=== PATIENT | female | born 1940 | race Caucasian/White ===

== ENCOUNTER 2023-01-23 06:09 | Day surgery (SDC) | payer MEDICARE, OTHER ==
[2023-01-22 11:27] LABS: BASOPHILS % (AUTO) 0.7 % (0-1); EOSINOPHILS # (AUTO) 0.1 X10'3 (0-0.9); EOSINOPHILS % (AUTO) 2.5 % (0-6); HEMATOCRIT 41.5 % (35.0-45.0); HEMOGLOBIN 13.9 g/dl (12.0-16.0); LYMPHOCYTES # (AUTO) 1.6 X10'3 (1.1-4.8); LYMPHOCYTES % (AUTO) 29.6 % (21-51); MEAN CORPUSCULAR HEMOGLOBIN 29.3 PG (27.0-31.0); MEAN CORPUSCULAR HGB CONC 33.4 g/dL (33.0-36.5); MEAN CORPUSCULAR VOLUME 87.9 FL (78-98); MONOCYTES # (AUTO) 0.6 X10'3 (0-0.9); MONOCYTES % (AUTO) 11.7 % (2-12); NEUTROPHILS % (AUTO) 55.5 % (42-75); PLATELET COUNT 260 X10'3 (140-440); RED BLOOD COUNT 4.73 X10'6 (4.20-5.60); WHITE BLOOD COUNT 5.5 X10'3 (4.5-11.0)
[2023-01-22 11:35] LABS: APTT 26 SECONDS (22-32); INR 0.9 INR; PROTHROMBIN TIME 10.1 SECONDS (9.0-12.0)
[2023-01-22 11:40] LABS: ALBUMIN 4.2 G/DL (3.4-5.0); ANION GAP 9 (8-16); BLOOD UREA NITROGEN 17 MG/DL (7-18); BUN/CREATININE RATIO 17.9 (10.0-20.0); CHLORIDE 100 MMOL/L (99-107); CREATININE 0.95 MG/DL (0.40-0.90); GLUCOSE 94 MG/DL (70-104); POTASSIUM 3.8 MMOL/L (3.5-5.1); SODIUM 138 MMOL/L (135-145); TOTAL CARBON DIOXIDE 29.5 MMOL/L (24-32); eGFR 56 ML/MIN
[2023-01-23] VITALS (11 sets, daily range): BP systolic 99–135; BP diastolic 52–64; PULSE 64–74; RESP 12–17; TEMP 97.9; O2SAT 94–98
[~2023-01-23] VITALS: Ht 167.6 cm; Wt 76.2 kg
[2023-01-23] MEDS ORDERED: LORazepam 0.5 MG tablet PO PRN (06:25)
[2023-01-23] MEDS ORDERED: diphenhydrAMINE 25mg capsule PO PRN (06:25)
[2023-01-23] MEDS ORDERED: normal saline 1,000 ML IV SCH (06:25)
[2023-01-23] MEDS ORDERED: midazolam 1 mg/ML 2ml injection ONE (06:57)
[2023-01-23] MEDS ORDERED: nitroGLYCERIN-Tridil 50MG/D5W 250 ML IV ONE (06:57)
[2023-01-23] MEDS ORDERED: fentaNYL/PF 50MCG/1 ML 2ML syringe ONE (06:57)
[2023-01-23] MEDS ORDERED: iohexol 350 MG/ML 50ML vial IV ONE ×2 (06:57→08:36)
[2023-01-23] MEDS ORDERED: verapamil 2.5 mg/ml inj IV ONE (06:57)
[2023-01-23] MEDS ORDERED: LIDOcaine 1% (10mg/ml) 2ml vial ONE (06:57)
[2023-01-23] MEDS ORDERED: heparin 1,000unit/ml 10ml vial 10 ML ONE (06:57)
[2023-01-23] MEDS ORDERED: iohexol 350MG/ML 100ml bottle IV ONE ×2 (06:58→08:35)
[2023-01-23] MEDS ORDERED: SPIR25TA5 PO (07:04)
[2023-01-23] MEDS ORDERED: ATOR10TA70 PO (07:04)
[2023-01-23] MEDS ORDERED: VITA1TAB20 PO (07:04)
[2023-01-23] MEDS ORDERED: CALC-336 PO (07:04)
[2023-01-23] MEDS ORDERED: POTA-206 PO (07:04)
[2023-01-23] MEDS ORDERED: CHOL100034 PO (07:04)
[2023-01-23] MEDS ORDERED: FURO-150 PO (07:04)
[2023-01-23] MEDS ORDERED: CLOP75TA33 PO (07:04)
[2023-01-23] MEDS ORDERED: MAGN400C PO (07:04)
[2023-01-23] MEDS ORDERED: METO-539 PO (07:04)
[2023-01-23] MEDS ORDERED: ASCO100T12 PO (07:04)
[2023-01-23] MEDS ORDERED: CHOL20004 PO (07:04)
[2023-01-23] MEDS ORDERED: LOSA50TA64 PO (07:04)
[2023-01-23] MEDS ORDERED: Prevagen PO (07:04)
[2023-01-23] MEDS ORDERED: ISOS60TA71 PO (07:04)
[2023-01-23] MEDS ORDERED: CYAN100T9 PO (07:04)
[2023-01-23] MEDS ORDERED: ACET-1025 PO (07:04)
[2023-01-23] MEDS ORDERED: Zinc PO (07:04)
[2023-01-23] MEDS ORDERED: MULT-1085 PO (07:04)
[2023-01-23] MEDS ORDERED: OMEP20CA16 PO (07:04)
[2023-01-23] MEDS ORDERED: NEURIVA PO (07:04)
[2023-01-23] MEDS ORDERED: LORazepam 0.5 MG tablet PO ONE (07:20)
[2023-01-23] MEDS ORDERED: normal saline 1000ml 1,000 ML IV SCH (09:45)
== END 2023-01-23 14:00 | disposition home or self-care (01) ==
LOC: SSTAY O 06:09
PROVIDERS: ATTEND Internal Medicine Cardiovascular Disease
DX: I25.119 Atherosclerotic heart disease of native coronary artery with unspecified angina pectoris (principal); I11.0 Hypertensive heart disease with heart failure; I50.22 Chronic systolic (congestive) heart failure; I42.0 Dilated cardiomyopathy; G43.909 Migraine, unspecified, not intractable, without status migrainosus; K21.9 Gastro-esophageal reflux disease without esophagitis; E78.5 Hyperlipidemia, unspecified; Z79.899 Other long term (current) drug therapy; Z88.2 Allergy status to sulfonamides; Z96.652 Presence of left artificial knee joint; Z98.890 Other specified postprocedural states; Z79.01 Long term (current) use of anticoagulants
CPT/HCPCS: 36415; 76937; 80048; 85025; 85610; 85730; 93005; 93458; 99152; 99153; J1644; J2250; J3010; J3490; J7030; Q0163; Q9967; A6258; A6402; C1725; C1894

== ENCOUNTER 2024-11-25 09:08 | Day surgery (SDC) | payer MEDICARE, OTHER ==
[2024-11-24 11:34] LABS: BASOPHILS % (AUTO) 0.6 % (0-1); EOSINOPHILS # (AUTO) 0.2 X10'3 (0-0.9); EOSINOPHILS % (AUTO) 2.5 % (0-6); HEMATOCRIT 39.9 % (35.0-45.0); HEMOGLOBIN 13.2 g/dl (12.0-16.0); LYMPHOCYTES # (AUTO) 2.5 X10'3 (1.1-4.8); LYMPHOCYTES % (AUTO) 35.2 % (21-51); MEAN CORPUSCULAR HEMOGLOBIN 30.1 PG (27.0-31.0); MEAN CORPUSCULAR HGB CONC 33.1 g/dL (33.0-36.5); MEAN CORPUSCULAR VOLUME 90.8 FL (78-98); MEAN PLATELET VOLUME 7.5 FL (7.4-10.4); MONOCYTES # (AUTO) 0.8 X10'3 (0-0.9); MONOCYTES % (AUTO) 11.1 % (2-12); NEUTROPHILS # (AUTO) 3.5 X10'3 (1.8-7.7); NEUTROPHILS % (AUTO) 50.6 % (42-75); PLATELET COUNT 253 X10'3 (140-440); RED BLOOD COUNT 4.39 X10'6 (4.20-5.60); RED CELL DISTRIBUTION WIDTH 14.1 % (11.5-14.5)
[2024-11-24 11:47] LABS: APTT 25 SECONDS (22-32); PROTHROMBIN TIME 10.2 SECONDS (9.0-12.0)
[2024-11-24 12:52] LABS: ALBUMIN 3.8 G/DL (3.4-5.0); ANION GAP 6 (8-16); BLOOD UREA NITROGEN 19 MG/DL (7-18); BUN/CREATININE RATIO 21.3 (10.0-20.0); CALCIUM 9.5 MG/DL (8.5-10.1); CHLORIDE 105 MMOL/L (99-107); CREATININE 0.89 MG/DL (0.40-0.90); GLUCOSE 97 MG/DL (70-104); SODIUM 138 MMOL/L (135-145); TOTAL CARBON DIOXIDE 27.5 MMOL/L (24-32); eGFR 60 ML/MIN
[2024-11-25] VITALS (12 sets, daily range): BP systolic 120–157; BP diastolic 55–73; PULSE 60–75; RESP 10–16; TEMP 97.6; O2SAT 94–99
[~2024-11-25] VITALS: Ht 170.2 cm; Wt 78.5 kg
[~2024-11-25 09:08] MED LIST: ACET-1025 PO; ASCO100T12 PO; ATOR20TA66 PO; CALC-336 PO; CHOL100034 PO; CHOL20004 PO; CLOP75TA33 PO; CLOP75TA34 PO; CYAN100T9 PO; FURO-150 PO; ISOS60TA71 PO; LOSA-415 PO; MULT-1085 PO; OMEP20CA16 PO; POTA-192 PO; POTA-206 PO; SOTA80TA73 PO; SPIR25TA5 PO; VITA-290 PO
--- NOTE | 2024-11-25 09:52 | ELECTROCARDIOGRAPH REPORT ---
[facility] Test Date: 2024-11-25 Test Time: 09:50:41 Pat Name: JOSEFA PAL Department: [facility] Patient ID: [facility]-[id number] Room: Gender: F Lna: SHAYNE : 1940 Requested By: SERGIO KAUR Order Number: [id number] Reading MD: Dr. BORIS Kaur Measurements Intervals [place] Rate: 53 P: 46 VT: 163 QRS: 71 QRSD: 131 T: 3 QT: 488 QTc: 459 Interpretive Statements Sinus rhythm Left bundle branch block Electronically Signed On 11-25-2024 15:15:[address] BORIS Kaur Please click the below link to view image of tracing.
[2024-11-25] MEDS ORDERED: FURO20TA4 PO (09:59)
[2024-11-25] MEDS ORDERED: LOSA25TA41 PO (10:05)
[2024-11-25] MEDS ORDERED: ceFAZolin 2gm/dext,iso 50mL 50 ML IV ONE (10:05)
[2024-11-25] MEDS ORDERED: Prevagen PO (10:05)
[2024-11-25] MEDS ORDERED: normal saline 50ml IV soln 50 ML IV ONE (10:15)
[2024-11-25] MEDS ORDERED: LIDOcaine 1% W/epiNEPHrine 1:100,000 20ml vial ONE (10:34)
[2024-11-25] MEDS ORDERED: fentaNYL/PF 50MCG/1 ML 2ML syringe ONE (10:34)
[2024-11-25] MEDS ORDERED: midazolam 1 mg/ML 2ml injection ONE (10:34)
[2024-11-25] MEDS ORDERED: ceFAZolin 1000mg inj ONE (10:34)
[2024-11-25] MEDS ORDERED: iohexol 350 MG/ML 50ML vial IV ONE (11:46)
[2024-11-25] MEDS ORDERED: diphenhydrAMINE 50 mg/ml inj ONE (11:56)
[2024-11-25] MEDS ORDERED: HYDROcodone/acetaminophen 5mg/325mg tablet PO PRN (13:25)
[2024-11-25] MEDS ORDERED: CEPH-585 PO (13:38)
[2024-11-25] MEDS: HYDROcodone/acetaminophen 10/325mg tab PO PRN (15:15)
[2024-11-25] MEDS: vancomycin/NS 1 GM ADD-VANTAGE 250 ML X 1 DOSE IV ONE (15:16)
--- NOTE | 2024-11-25 15:18 | RADIOLOGY REPORT ---
CHEST RADIOGRAPH Indication: S/P PACEMAKER Technique: Frontal and lateral view of the chest was obtained Comparison: None FINDINGS: Lines and Tubes: Left chest wall pacemaker Lungs: Clear Pleura: No effusion. No pneumothorax. Cardiomediastinal contours: Unremarkable Bones: Unremarkable IMPRESSION: No evidence of acute disease.
[2024-11-25] MEDS ORDERED: sod chloride 0.9% 10ml flush syringe IV ONE (16:00)
--- NOTE | 2024-11-25 17:23 | CARDIOLOGY REPORT ---
DATE OF SERVICE: 11/25/2024 DICTATING PHYSICIAN: BORIS Adams MD PERMANENT PACEMAKER IMPLANTATION REPORT GENDER: Female. AGE: 83 years. HEIGHT: 170 cm. WEIGHT: 78.5 kg. BODY SURFACE AREA: 0.9 m2. PRIMARY PHYSICIAN: Dr. New. SCHOOL STANDARDS COACH: BORIS Adams MD INDICATION: The patient is an 83-year-old postmenopausal female with history of hypertension, hyperlipidemia, CAD, sick sinus syndrome, and CHF. The patient is having exertional fatigue and tiredness and the patient also has a left bundle-branch block. Heart rate is in the 40s. The patient has been having exertional fatigue, tiredness, dizzy spells. After discussing risks, benefits, and alternative options, the patient prefers to proceed with permanent pacemaker implantation. Risks, benefits, and alternative options were discussed. Informed consent was obtained. PREPROCEDURE DIAGNOSIS: Sick sinus syndrome with symptomatic bradycardia. POSTPROCEDURE DIAGNOSIS: Sick sinus syndrome with symptomatic bradycardia. PROCEDURES DONE: * Fluoroscopy. * AV sequential pacemaker implantation. * Conscious sedation of 75 minutes. SURGEON: BORIS Adams MD, [facility] [employer] [facility]ISTANT SURGEON: None. ANESTHESIA: conscious sedation and local anesthesia. COMPLICATIONS: None. BLOOD LOSS: Less than 5 mL. DESCRIPTION OF PROCEDURE: Left infraclavicular area was prepped and draped in the usual fashion. Two separate accesses obtained in the left subclavian vein. Two micropuncture wires were replaced with 2 J-wires. A horizontal incision was placed in the left infraclavicular area. Using blunt dissection, electrocautery, subcutaneous pre-pectoral pacemaker pocket was formed. External ends of the J-wires were retrieved into the pacemaker pocket. Two 7-Maltese sheaths were advanced over those J-wires. Through one of them, RV lead advanced to the RV apex, screwed into the RV apex. Appropriate pacing and sensing thresholds obtained, sheath was removed by peel-away technique. Through the second 7-Maltese sheath, the right atrial lead advanced to the right atrium, J-wire was formed, screwed into the right atrial appendage. Appropriate pacing and sensing thresholds obtained. Sheath removed in peel-away technique and lead anchored to the subcutaneous tissue. Pocket was irrigated with copious antibiotic solution. Leads connected to appropriate sockets of the pulse generator. Set screws were tightened. Tug test performed and the pacemaker was suspended into the pacemaker pocket. The pocket was closed with interrupted 2-0 Vicryl followed by continuous 0 Vicryl, third layer of interrupted 2-0 Vicryl applied. Skin approximated with camryn. Pressure dressing applied. The patient tolerated the procedure with no complications. TECHNICAL INFORMATION: DEVICE USED: Medtronic MRI-compatible [place] pacemaker. Model number [id number], serial number [id number], Medtronic, 11/25/2024, left pectoral location. RIGHT ATRIAL LEAD: Model number 4076, 52 cm long, serial number [id number], Medtronic, 11/25/2024, right atrial appendage, P-wave amplitude 2 millivolts, 72 ohms impedance, pacing threshold of 1.5 at 0.4 milliseconds. RV LEAD: Model number 5076, 58 cm long, serial number [id number], Medtronic, 11/25/2024, RV apex, R-wave amplitude of 9.8 millivolts, 874 ohms of impedance, pacing threshold of 0.75 volt at 0.4 milliseconds. IMPRESSION: An 83-year-old female with sick sinus syndrome, symptomatic tachycardia episode, underwent successful AV sequential pacemaker implantation with no complications. BORIS Adams MD TID: [id number] RECEIPT: [id number] ELKIN/COURT cc: Dr. COOKIE BROWN
== END 2024-11-25 18:05 | disposition home or self-care (01) ==
LOC: SSTAY O 09:08
PROVIDERS: ATTEND Internal Medicine Cardiovascular Disease
DX: I49.5 Sick sinus syndrome (principal); R53.83 Other fatigue; I11.0 Hypertensive heart disease with heart failure; I50.9 Heart failure, unspecified; I25.10 Atherosclerotic heart disease of native coronary artery without angina pectoris; E78.5 Hyperlipidemia, unspecified; I44.7 Left bundle-branch block, unspecified; Z78.0 Asymptomatic menopausal state; Z98.890 Other specified postprocedural states; Z79.899 Other long term (current) drug therapy
CPT/HCPCS: 33208; 36415; 71046; 80048; 85025; 85610; 85730; 93005; 99152; 99153; A4565; A6402; C1785; C1898; J0690; J1200; J2250; J3010; J3370; J3490; J7030; Q9967; Z7610; A6449